=== PATIENT | female | born 1995 | race Two or more races ===

== ENCOUNTER 2017-10-10 23:21 | Emergency (ER) | payer MEDICAID, OTHER ==
[~2017-10-10] VITALS: Ht 160 cm; Wt 61.2 kg
[2017-10-10 23:37] VITALS: BP 124/79
[2017-10-11] MEDS ORDERED: LEVETIRACETAM 500 MG TAB PO ONE ×2 (00:15)
[2017-10-11 00:31] LABS: Basophils # (auto) 0.1 uL; Basophils % (auto) 1.6 % (0.0-2.0); Eosinophils # (auto) 0.1 uL; Eosinophils % (auto) 2.1 % (0.0-7.0); Hematocrit 43.4 % (36.0-46.0); Hemoglobin 14.8 g/dL (12.2-16.2); Lymphocytes # (auto) 1.2 uL; Lymphocytes % (auto) 30.1 % (10.0-50.0); Mean Corpuscular Volume 95.9 fL (80.0-100.0); Monocytes # (auto) 0.3 uL; Monocytes % (auto) 6.9 % (0.0-12.0); Neutrophils # (auto) 2.3 uL; Neutrophils % (auto) 59.3 % (37.0-80.0); Nucleated Red Blood Cells % 0.1 %; Red Blood Cells 4.53 10^6/uL (4.0-5.20)
[2017-10-11 00:32] LABS: Mean Corpuscular Hemoglobin 32.6 pg (28.0-32.0); Platelet Count (auto) 236 10^3/uL (140-450); Red Cell Distribution Width 13.3 % (11.8-14.3)
[2017-10-11 00:33] LABS: INR 0.89 (0.9-1.15); Partial Thromboplastin Time 23.5 sec (23.78-33.04); Prothrombin Time 9.6 sec (9.27-12.13)
[2017-10-11 00:36] LABS: Albumin 3.3 g/dL (3.4-5.0); Calcium 8.2 mg/dL (8.5-10.1); Potassium 4.5 mmol/L (3.5-5.1)
[2017-10-11 00:40] LABS: BUN/Creatinine Ratio 22.2; Bilirubin, Total 0.3 mg/dL (0.2-1.0); Total Protein 7.2 g/dL (6.4-8.2)
[2017-10-11] MEDS ORDERED: InsuLIN REG 1unit/0.01ml Soln (100units/ml) IV ONE (01:00)
[2017-10-11] MEDS ORDERED: SODIUM CHLORIDE 0.9% 2,000 ML IV ONE (01:00)
== END 2017-10-11 04:15 | disposition home or self-care (01) ==
LOC: EDBD 23:21 → ER 23:21
DX: S01.01XA Laceration without foreign body of scalp, initial encounter (principal); G40.909 Epilepsy, unspecified, not intractable, without status epilepticus; R53.1 Weakness; W18.39XA Other fall on same level, initial encounter; Y93.89 Activity, other specified; Y92.89 Other specified places as the place of occurrence of the external cause; Y99.8 Other external cause status; Z79.4 Long term (current) use of insulin
CPT/HCPCS: 12002; 36415; 70450; 80053; 82962; 84702; 85025; 85610; 85730; 96374; 99285; J1815

== ENCOUNTER 2018-01-20 20:13 | Emergency (ER) | payer MEDICAID ==
[~2018-01-20] VITALS: Ht 162.6 cm; Wt 63.5 kg
[2018-01-20] MEDS ORDERED: ACETAMINOPHEN 325 MG TAB PO ONE (20:30)
[2018-01-20 21:42] LABS: Basophils # (auto) 0 uL; Basophils % (auto) 0.4 % (0.0-2.0); Eosinophils # (auto) 0.1 uL; Eosinophils % (auto) 1.2 % (0.0-7.0); Hematocrit 42.3 % (36.0-46.0); Hemoglobin 14.1 g/dL (12.2-16.2); Lymphocytes # (auto) 0.7 uL; Lymphocytes % (auto) 9.9 % (10.0-50.0); Mean Corpuscular Hemoglobin 31.2 pg (28.0-32.0); Mean Corpuscular Hgb Conc. 33.2 g/dL (32.0-36.0); Mean Corpuscular Volume 93.8 fL (80.0-100.0); Monocytes # (auto) 0.3 uL; Monocytes % (auto) 4.1 % (0.0-12.0); Neutrophils # (auto) 6.1 uL; Neutrophils % (auto) 84.4 % (37.0-80.0); Platelet Count (auto) 258 10^3/uL (140-450); Red Blood Cells 4.51 10^6/uL (4.0-5.20); Red Cell Distribution Width 12.6 % (11.8-14.3); White Blood Cell 7.2 10^3/uL (4.4-10.8)
[2018-01-20] MEDS ORDERED: SODIUM CHLORIDE 0.9% 500 ML IV ONE (22:00)
[2018-01-20] MEDS ORDERED: InsuLIN REG 1unit/0.01ml Soln (100units/ml) IV ONE (22:00)
[2018-01-20 22:03] LABS: BUN/Creatinine Ratio 15.7; Calcium 7.6 mg/dL (8.5-10.1); Potassium 5.2 mmol/L (3.5-5.1)
[2018-01-20 22:05] LABS: Bilirubin, Total 0.2 mg/dL (0.2-1.0); Total Protein 6.7 g/dL (6.4-8.2)
[2018-01-20 23:35] LABS: Lactic Acid w/Reflex 2.6 mmol/L (0.4-2.0)
[2018-01-20 23:44] LABS: Urine Pregnacy Test Negative (Negative)
[2018-01-20 23:48] LABS: Urine Bacteria NONE SEEN /hpf (None Seen); Urine Blood 2+ /uL (Negative); Urine Specific Gravity 1.024 (1.001-1.035); Urine WBC 1 /hpf (0 - 5)
[2018-01-20 23:56] LABS: Alcohol, Urine < 3.0 mg/dL (0-5); Amphetamine Screen, Urine NEGATIVE (NEGATIVE); Barbiturate Scree,Urine NEGATIVE (NEGATIVE); Benzodiazephine Screen, Urine NEGATIVE (NEGATIVE); Cannabinoid Screen, Urine NEGATIVE (NEGATIVE); Cocaine Screen, Urine NEGATIVE (NEGATIVE); Opiate Scree,Urine NEGATIVE (NEGATIVE); Phencyclidine Screen, Urine NEGATIVE (NEGATIVE)
[2018-01-21 01:53] VITALS: BP 136/88
== END 2018-01-21 01:56 | disposition home or self-care (01) ==
LOC: ER 20:13
DX: R41.82 Altered mental status, unspecified (principal); R55 Syncope and collapse; E11.65 Type 2 diabetes mellitus with hyperglycemia; E11.10 Type 2 diabetes mellitus with ketoacidosis without coma; E87.5 Hyperkalemia
CPT/HCPCS: 36415; 70450; 72125; 80053; 80307; 81001; 81025; 82010; 82962; 83605; 85025; 87040; 96361; 96374; 99285; J1815; J7030

== ENCOUNTER 2023-11-15 11:13 | Emergency (ER) | payer MEDICAID ==
[~2023-11-15] VITALS: Ht 162.6 cm; Wt 72.7 kg
[2023-11-15] MEDS: levETIRAcetam 1000 mg/100ml 100 ML IV ONE (12:21)
[2023-11-15] MEDS: LORazepam 2MG/ML-1ML VIAL IV ONE (12:21)
[2023-11-15] MEDS: D5W/SOD CHLO 0.9% 1,000 ML IV ONE (12:21)
[2023-11-15 12:26] LABS: Basophils # (auto) 0.1 10 ^3/uL (0-0.2); Eosinophils # (auto) 0.3 10 ^3/uL (0-0.8); Hemoglobin 11.2 g/dL (12.2-16.2); Lymphocytes # (auto) 1.1 10 ^3/uL (0.4-5.4); Monocytes # (auto) 0.3 10 ^3/uL (0-1.3); Neutrophils # (auto) 3.7 10 ^3/uL (1.6-8.6); White Blood Cell 5.4 10^3/uL (4.4-10.8)
[2023-11-15 12:29] LABS: Basophils % (auto) 1.2 % (0.0-2.0); Eosinophils % (auto) 5.3 % (0.0-7.0); Lymphocytes % (auto) 19.7 % (10.0-50.0); Mean Corpuscular Hemoglobin 25.4 pg (28.0-32.0); Mean Corpuscular Volume 79.4 fL (80.0-100.0); Monocytes % (auto) 5.2 % (0.0-12.0); Neutrophils % (auto) 68.6 % (37.0-80.0); Red Blood Cells 4.41 10^6/uL (4.0-5.20); Red Cell Distribution Width 17.1 % (11.8-14.3)
[2023-11-15 12:34] LABS: Blood Alcohol < 3.0 mg/dL (<10)
[2023-11-15 12:37] LABS: Alanine Aminotransferase 22 U/L (7-40); Albumin 3.8 g/dL (3.2-4.8); Alkaline Phosphatase 113 U/L (46-116); Anion Gap 9 (5-15); Aspartate Aminotransferase 17 U/L (13-40); Bilirubin, Total 0.3 mg/dL (0.2-1.0); Blood Urea Nitrogen 13 mg/dL (9-23); Calcium 8.8 mg/dL (8.5-10.1); Carbon Dioxide 21 mmol/L (20-30); Chloride 107 mmol/L (98-107); Glucose 156 mg/dL (74-106); Potassium 3.4 mmol/L (3.5-5.1); Sodium 137 mmol/L (136-145)
[2023-11-15 19:48] VITALS: BP 150/108; PULSE 74; RESP 12; TEMP 98.2; O2SAT 99
== END 2023-11-15 19:47 | disposition home or self-care (01) ==
LOC: ER 11:13 → EDBD 11:13 → ER 19:47
DX: R56.9 Unspecified convulsions (principal); R10.2 Pelvic and perineal pain; E11.649 Type 2 diabetes mellitus with hypoglycemia without coma; T38.3X5A Adverse effect of insulin and oral hypoglycemic [antidiabetic] drugs, initial encounter; Y92.9 Unspecified place or not applicable
CPT/HCPCS: 36415; 80053; 80320; 83735; 84702; 85025; 93005; 96365; 99285; J1953

== ENCOUNTER 2025-04-05 21:40 | Inpatient (IN) | payer MEDICAID ==
[~2025-04-05] VITALS: Ht 160 cm; Wt 76.5 kg
[2025-04-05] MEDS: ONDANSETRON HCL 4 MG/2 ML VIAL IV ONE (23:32)
--- NOTE | 2025-04-05 23:37 | DVH ---
CHEST RADIOGRAPH Indication: seizure Technique: Single frontal view of the chest was obtained COMPARISON: None FINDINGS: Lines and Tubes: None Lungs: Clear Pleura: No effusion. No pneumothorax. Cardiomediastinal contours: Unremarkable Bones: Unremarkable IMPRESSION: 1. No acute disease.
[2025-04-05 23:49] LABS: Hematocrit 30.8 % (36.0-46.0); Hemoglobin 9.9 g/dL (12.2-16.2); Mean Corpuscular Hemoglobin 23.3 pg (28.0-32.0); Mean Corpuscular Volume 72.5 fL (80.0-100.0); Nucleated Red Blood Cells % 0.0 %
--- NOTE | 2025-04-05 23:49 | ED.PDOC ---
HPI (NEURO) HPI Comments HPI: 29-year-old female who came to ER via EMS for seizures. History of seizures and diabetes. Patient after dinner, took 8 units of insulin, and shortly afterwards, while she was at the couch had a witnessed seizure episode. No head trauma noted. Patient supposed takes Keppra 500 mg 2x/day, however she did not take this mornings dose. Last seizure episode was a year ago. Upon arrival of paramedics, noted blood sugar levels of 69 so patient was given D10w and it improved to 149. Upon arrival at the ER, patient is at baseline, not post ictal, no incontinence or oral trauma noted Past Medical History: Diabetes, seizures, asthma Past Surgical History: Eye surgery Social History: Medications: Keppra, insulin Allergies: quiroz:: sz HPI: Poor Historian. REVIEW OF SYSTEMS: CONSTITUTIONAL: Denies acute: fever, diaphoresis, chills, HEAD: Denies acute: , photophobia Eyes: Denies acute: Double vision, vision loss, eye pain, eye discharge. EARS: Denies acute: tinnitus, hearing loss, ear discharge, ear pain, THROAT: Denies acute: sore throat, swelling, difficulty swallowing , pain with swallowing, change in voice. NECK: Denies acute: neck pain, neck swelling, stiff neck. HEART: Denies acute : chest pain, palpitations, LUNGS: Denies acute: SOB, wheezing, cough, hemoptysis ABDOMEN: Denies acute: abdominal pain, , Vomiting, diarrhea, melena , hematemesis, hematochezia SKIN: Denies acute: rash, redness, lesions, itchiness. EXTREMITIES: Denies acute: calf pain, numbness, tingling, weakness, denies pain in extremity. Denies acute: Low back pain. Neuro: Denies acute: focal neurological deficit, motor or sensory focal neurological deficit, confusion, dizziness, change in mental status, loss of bowel or bladder function, cauda equina like symptoms. : Denies acute: dysuria, hematuria, flank pain, increase in urinary frequency. PSYCH: Denies acute: hallucination, suicidal ideation, homicidal ideation. FEMALE: Denies acute: abnormal vaginal bleeding, foul odor, unusual discharge. PHYSICAL EXAM: General: ----no----acute distress, awake and alert. Head: normocephalic, atraumatic. No raccoon's eyes, no madrid sign. Neck: supple, trachea is midline, no swelling. Throat: Normal phonation. Eyes:, no erythema, no purulent discharge, no proptosis, no icterus. Heart: regular rate, regular rhythm, no significant murmur appreciated. Lungs: no apparent respiratory distress, Able to speak in full sentences. No wheezing, no rhonchi, no crackles. No stridors Clear to auscultation bilaterally. Abdomen: non tender to palpation, non distended, soft, no guarding, no rebound, + bowel sounds. Neuro: Awake, Alert, oriented to name, self, situation, follows commands GCS=15. Speech is normal. Skin: no petechia, no purpura, no cyanosis, non-pale, not jaundice. Lower extremities: --no - Pitting edema no deformity, no focal swelling, no calf TTP. Makes eye contact. moves all four extremities. Face: no apparent facial droop. Ambulating in the ED independently. No nuchal rigidity, Kernig's sign, Brudzinski's sign, no meningeal signs. ED COURSE: DISCLAIMER: This medical document was created using an electronic medical record system with voice recognition software and computerized dictation system. Although this document has been carefully reviewed, there might still be some phonetic and typographical errors. Occasional wrong-word or "sound-alike" substitutions may h ave occurred due to the inherent limitations of voice recognition software. These areas are purely typographical due to imperfections of the software programs and do not reflect any compromise in the patient's medical care. Please read the chart carefully and recognize, using context, where these substitutions have occurred. Chief Complaint: Seizure Time Seen by MD: 23:49 Reviewed Notes: Nurses Notes, Allergies Information Source: Patient Mode of Arrival: EMS Past Medical History PAST MEDICAL HISTORY: DM, Seizures Surgical History: Denies all surgeries CLIPPING MARKER History: Denies all CLIPPING MARKER Hx Family History Family History: Unknown Social History Smoker: Non-Smoker Alcohol: Denies ETOH Use Drugs: Denies Drug Use Lives In: Home Was a procedure done? Was a procedure done?: No Differential Diagnosis (SZ) Seizure: Epilepsy-Break Through, Epilepsy-Status X-Ray, Labs, Meds, VS Vital Signs Date Time Temp Pulse Resp B/P (MAP) Pulse Ox O2 Delivery O2 Flow Rate FiO2 04/06/25 02:00 85 12 148/89 (108) 96 04/06/25 00:00 85 13 159/97 (117) 99 04/05/25 22:13 98.4 96 18 146/102 (117) 98 98.4 04/05/25 22:13 Room Air* 0 21 04/05/25 21:45 98.0 91 18 156/82 96 98.0 Lab Test 04/06/25 00:20 04/05/25 23:25 04/05/25 23:21 04/05/25 23:19 Range/Units POC Glucose 89 70-106 mg/dl Levetiracetam Level Pending White Blood Count 8.9 4.4-10.8 10^3/uL Red Blood Count 4.24 4.0-5.20 10^6/uL Hemoglobin 9.9 L 12.2-16.2 g/dL Hematocrit 30.8 L 36.0-46.0 % Mean Corpuscular Volume 72.5 L 80.0-100.0 fL Mean Corpuscular Hemoglobin 23.3 L 28.0-32.0 pg Mean Corpuscular Hemoglobin Concent 32.1 32.0-36.0 g/dL Red Cell Distribution Width 16.4 H 11.8-14.3 % Platelet Count 430 140-450 10^3/uL Mean Platelet Volume 7.9 6.9-10.8 fL Neutrophils (%) (Auto) 74.3 37.0-80.0 % Lymphocytes (%) (Auto) 14.4 10.0-50.0 % Monocytes (%) (Auto) 6.0 0.0-12.0 % Eosinophils (%) (Auto) 4.5 0.0-7.0 % Basophils (%) (Auto) 0.8 0.0-2.0 % Neutrophils # (Auto) 6.6 1.6-8.6 10 ^3/uL Lymphocytes # (Auto) 1.3 0.4-5.4 10 ^3/uL Monocytes # (Auto) 0.5 0-1.3 10 ^3/uL Eosinophils # (Auto) 0.4 0-0.8 10 ^3/uL Basophils # (Auto) 0.1 0-0.2 10 ^3/uL Nucleated Red Blood Cells 0.0 % Sodium Level 139 136-145 mmol/L Potassium Level 4.3 3.5-5.1 mmol/L Chloride Level 103 98-107 mmol/L Carbon Dioxide Level 28 20-31 mmol/L Anion Gap 8 5-15 Blood Urea Nitrogen 27 H 9-23 mg/dL Creatinine 1.67 H 0.550-1.02 mg/dL Glomerular Filtration Rate Calc 43 >90 mL/min BUN/Creatinine Ratio 16.2 10.0-20.0 Serum Glucose 49 *L 74-106 mg/dL Lactic Acid Level 1.6 0.4-2.0 mmol/L Calcium Level 8.6 L 8.7-10.4 mg/dL Magnesium Level 2.1 1.6-2.6 mg/dL Total Bilirubin 0.2 0.2-1.0 mg/dL Aspartate Amino Transferase (AST) 22 13-40 U/L Alanine Aminotransferase (ALT) 21 7-40 U/L Alkaline Phosphatase 88 46-116 U/L Troponin I High Sensitivity < 3 L </=34 ng/L Total Protein 7.0 5.7-8.2 g/dL Albumin 3.6 3.2-4.8 g/dL Urine Color Colorless Yellow Urine Clarity Turbid H Clear Urine pH 6.5 5.0-9.0 Urine Specific [place] 1.012 1.001-1.035 Urine Protein 2+ H Negative Urine Ketones Negative Negative Urine Blood 3+ H Negative /uL Urine Nitrite Negative Negative Urine Bilirubin Negative Negative Urine Urobilinogen Normal Negative mg/dL Urine Leukocyte Esterase 1+ Negative /uL Urine RBC 4035 0 - 4 /hpf Urine Microscopic WBC 17 H 0-5 /HPF Urine Squamous Epithelial Cells Few <5 /hpf Urine Bacteria None seen None Seen /hpf Urine Glucose 2+ H Normal mg/dL Test 04/05/25 22:51 04/05/25 21:49 Range/Units POC Glucose 76 149 H 70-106 mg/dl Current Medications Medications (Trade) Dose Ordered Sig/Chely Route Start Time Stop Time Status Last Admin Ondansetron HCl (Zofran) 4 mg ONCE ONCE IV 04/05/25 23:30 04/05/25 23:31 DC 04/05/25 23:32 Sodium Chloride 1,000 ml @ 1,000 mls/hr Q1H ONCE IV 04/05/25 23:45 04/06/25 00:44 DC 04/06/25 00:44 Levetiracetam 100 ml @ 400 mls/hr ONCE ONCE IV 04/05/25 23:45 04/05/25 23:59 DC 04/06/25 00:44 Acetaminophen (Tylenol Solution Oral) 650 mg ONCE ONCE GT 04/05/25 23:45 04/05/25 23:46 DC 04/06/25 00:44 Dextrose 50 ml ONCE ONCE IV 04/06/25 00:45 04/06/25 00:46 DC 04/06/25 00:45 [place] [id number] Ph: [phone] DIAGNOSTIC IMAGING Diagnostic Imaging Report : [id number] Signed PATIENT: KATRINA QUIROZ ACCT: [id number] UNIT: [id number] : 1995 LOC: ER ROOM / BED: / AGE / SEX: 29 / F ADM STATUS: REG ER SERVICE 07 ORDERING PHYSICIAN: EMILE GREER DO PROCEDURE(s): CXRP - CHEST PORTABLE REASON: seizure ORDER NUMBER(s): [id number], ACCESSION NUMBER(s): [id number] CHEST RADIOGRAPH Indication: seizure Technique: Single frontal view of the chest was obtained COMPARISON: None FINDINGS: Lines and Tubes: None Lungs: Clear Pleura: No effusion. No pneumothorax. Cardiomediastinal contours: Unremarkable Bones: Unremarkable IMPRESSION: 1. No acute disease. ATED BY: ALFONSO FRASER MD DICTATED DATE/TIME: 04/05/252334 SIGNED BY: ALFONSO FRASER MD SIGNED DATE/TIME: 04/05/252334 CC: Time of 1ST Reevaluation: 23:42 Reevaluation 1ST: Unchanged Patient Education/Counseling: Diagnosis, Treatment Family Education/Counseling: Diagnosis, Treatment Departure 1 Departure Time of Disposition: 00:22 Impression: Primary Impression: Breakthrough seizure Additional Impression: Hypoglycemia Disposition: ADMITTED INPATIENT Admit to: Tele Condition: Guarded Discharged With: Self Critical Care Note Critical Care Time?: No I personally scribed for EMILE GREER DO ([facility] on 04/05/25 at 23:49. Electronically submitted by Alec Mckeon ([facility] I personally scribed for EMILE GREER DO ([facility]) on 04/06/25 at 04:28. Electronically submitted by Alec Mckeon ([email or web address]). EMILE GREER DO Apr 05, 2025 23:49
[2025-04-06 00:04] LABS: Alanine Aminotransferase 21 U/L (7-40); Albumin 3.6 g/dL (3.2-4.8); Alkaline Phosphatase 88 U/L (46-116); Anion Gap 8 (5-15); BUN/Creatinine Ratio 16.2 (10.0-20.0); Carbon Dioxide 28 mmol/L (20-31); Chloride 103 mmol/L (98-107); Magnesium 2.1 mg/dL (1.6-2.6); Potassium 4.3 mmol/L (3.5-5.1); Sodium 139 mmol/L (136-145); Total Protein 7.0 g/dL (5.7-8.2)
[2025-04-06 00:05] LABS: Bilirubin, Total 0.2 mg/dL (0.2-1.0); Blood Urea Nitrogen 27 mg/dL (9-23); Calcium 8.6 mg/dL (8.7-10.4)
[2025-04-06 00:18] LABS: Glucose 49 mg/dL (74-106)
[2025-04-06] MEDS: ACETAMINOPHEN 650 mg PER 20.3 mL UD GT ONE (00:44)
[2025-04-06] MEDS: SODIUM CHLORIDE 0.9% 1,000 ML IV ONE (00:44)
[2025-04-06] MEDS: levETIRAcetam 1000 mg/100ml 100 ML IV ONE (00:44)
[2025-04-06] MEDS: DEXTROSE (50%) 50ML SYRG IV ONE (00:45)
[2025-04-06 02:30] LABS: Urine Protein, UAD 2+ (Negative)
--- NOTE | 2025-04-06 04:31 | DVHHPRES ---
History of Present Illness Resident Creating Document: JASMIN CAPPS History of Present Illness Patient is a 29-year-old female with past medical history of type 1 diabetes mellitus and seizures, presented to [facility] ED after seizure episode. Last night, she took Novolog right before dinner and later found her blood glucose was 57 mg/dL.and shortly afterward experienced a witnessed seizure while sitting on the couch, witnessed by her mother. There was no head trauma noted. Patient reports that she checking her blood glucose daily, with recent averages around 180 mg/dL. She also reportedly takes Keppra 500 mg twice daily but missed her morning dose today. Her last seizure occurred one year ago. Upon EMS arrival, her blood glucose was 69 mg/dL, and she was given D10W, which improved her glucose to 149 mg/dL. On evaluation in the ED, patient is afebrile, blood pressure is 156/82 mmHg. Initial labs show microcytic anemia, serum glucose 49, BUN 27 and creatinine 1.67. Chest x-ray shows no acute disease. The patient was started on IV antibiotics and IV fluids. Patient is admitted for further evaluation and management. Review of Systems Review of Systems Eyes: No Pain, No Vision change, No Conjunctivae inflammation, No Eyelid inflammation, No Other, No Redness ENT: No Ear pain, No Ear discharge, No Nose pain, No Nose discharge, No Nose congestion, No Mouth pain, No Mouth swelling, No Throat pain, No Throat swelling, No Other Cardiovascular: No Chest Pain, No Palpitations, No Orthopnea, No Paroxysmal No Dyspnea, No Edema, No Lt Headedness, No Other Respiratory: No Cough, No Dry, No Shortness of breath, No SOB with exertion, No Wheezing, No Hemoptysis, No Pleuritic Pain, No Sputum, No Other Gastrointestinal: No Nausea, No Vomiting, No Abdominal Pain, No Diarrhea, No Constipation, No Melena, No Hematochezia, No Other Genitourinary: No Dysuria, No Frequency, No Incontinence, No Hematuria, No Retention, No Other Musculoskeletal: No other, No neck pain, No shoulder pain, No arm pain, No back pain, No hand pain, No leg pain, No foot pain Neurological: Reports seizure last night. Denies focal weakness, numbness, dizziness, confusion, bowel/bladder incontinence. Skin: No Rash, No Lesions, No Jaundice, No Bruising, No Other Allergies: Coded Allergies: NO KNOWN ALLERGIES (Unverified , 10/10/17) Exam Vital Signs Vital Signs Date Time Temp Pulse Resp B/P (MAP) Pulse Ox O2 Delivery O2 Flow Rate FiO2 04/06/25 02:00 85 12 148/89 (108) 96 04/05/25 22:13 98.4 98.4 04/05/25 22:13 Room Air* 0 21 Exam General Appearance: Cooperative. Well developed. Well nourished. NAD Head Exam: Normal inspection Neck Exam: Normal inspection. Non-tender. Normal alignment Pulmonary/Respiratory: Chest non-tender. Clear bilateral breath sounds, no crackles, no wheezing. Cardiovascular/Chest: Regular rate and rhythm. No murmurs. No JVD. Peripheral Pulses: 2+ Radial (R). 2+ Radial (L). 2+ Pedal (R). 2+ Pedal (L) Abdominal Exam: Normal bowel sounds. Soft. normal abdomen, no visible veins, Nontender. No hepatospenomegaly. No masses Ankle Exam: Negative ankle edema Lower extremities: Negative lower extremity edema Neuro: Awake, alert, oriented 4, GCS 15, normal speech, moves all extremities, no facial droop, no focal deficits. Thoughts/Psych: Normal thought pattern. Appropriate mood and affect. Good judgement and insight Skin Exam: Normal inspection. Normal color. Warm. Dry Labs/Xrays Labs Test 04/06/25 00:20 04/05/25 23:25 04/05/25 23:21 04/05/25 23:19 Range/Units POC Glucose 89 70-106 mg/dl White Blood Count 8.9 4.4-10.8 10^3/uL Red Blood Count 4.24 4.0-5.20 10^6/uL Hemoglobin 9.9 L 12.2-16.2 g/dL Hematocrit 30.8 L 36.0-46.0 % Mean Corpuscular Volume 72.5 L 80.0-100.0 fL Mean Corpuscular Hemoglobin 23.3 L 28.0-32.0 pg Mean Corpuscular Hemoglobin Concent 32.1 32.0-36.0 g/dL Red Cell Distribution Width 16.4 H 11.8-14.3 % Platelet Count 430 140-450 10^3/uL Mean Platelet Volume 7.9 6.9-10.8 fL Neutrophils (%) (Auto) 74.3 37.0-80.0 % Lymphocytes (%) (Auto) 14.4 10.0-50.0 % Monocytes (%) (Auto) 6.0 0.0-12.0 % Eosinophils (%) (Auto) 4.5 0.0-7.0 % Basophils (%) (Auto) 0.8 0.0-2.0 % Neutrophils # (Auto) 6.6 1.6-8.6 10 ^3/uL Lymphocytes # (Auto) 1.3 0.4-5.4 10 ^3/uL Monocytes # (Auto) 0.5 0-1.3 10 ^3/uL Eosinophils # (Auto) 0.4 0-0.8 10 ^3/uL Basophils # (Auto) 0.1 0-0.2 10 ^3/uL Nucleated Red Blood Cells 0.0 % Sodium Level 139 136-145 mmol/L Potassium Level 4.3 3.5-5.1 mmol/L Chloride Level 103 98-107 mmol/L Carbon Dioxide Level 28 20-31 mmol/L Anion Gap 8 5-15 Blood Urea Nitrogen 27 H 9-23 mg/dL Creatinine 1.67 H 0.550-1.02 mg/dL Glomerular Filtration Rate Calc 43 >90 mL/min BUN/Creatinine Ratio 16.2 10.0-20.0 Serum Glucose 49 *L 74-106 mg/dL Lactic Acid Level 1.6 0.4-2.0 mmol/L Calcium Level 8.6 L 8.7-10.4 mg/dL Magnesium Level 2.1 1.6-2.6 mg/dL Total Bilirubin 0.2 0.2-1.0 mg/dL Aspartate Amino Transferase (AST) 22 13-40 U/L Alanine Aminotransferase (ALT) 21 7-40 U/L Alkaline Phosphatase 88 46-116 U/L Troponin I High Sensitivity < 3 L </=34 ng/L Total Protein 7.0 5.7-8.2 g/dL Albumin 3.6 3.2-4.8 g/dL Urine Color Colorless Yellow Urine Clarity Turbid H Clear Urine pH 6.5 5.0-9.0 Urine Specific [place] 1.012 1.001-1.035 Urine Protein 2+ H Negative Urine Ketones Negative Negative Urine Blood 3+ H Negative /uL Urine Nitrite Negative Negative Urine Bilirubin Negative Negative Urine Urobilinogen Normal Negative mg/dL Urine Leukocyte Esterase 1+ Negative /uL Urine RBC 4035 0 - 4 /hpf Urine Microscopic WBC 17 H 0-5 /HPF Urine Squamous Epithelial Cells Few <5 /hpf Urine Bacteria None seen None Seen /hpf Urine Glucose 2+ H Normal mg/dL SEPSIS Sepsis Screen Date sepsis recognized/suspect: Apr 05, 2025 Time Sepsis recognized/suspect: 2212 Recent Procedure: No On Antibiotic Therapy: No Respiratory Rate >20: No Heart Rate >90: No Temp<36 C (96.8 F) or >38.3 C: No SBP <90 or MAP <65 mmHG: No New Acute Mental Status Change: No Is the patient on CPAP, BIPAP,: No Physician Orders Seizure Precautions (04/05/25 ) Flatwork Finisher Hand (04/05/25 ) Chest Portable (04/05/25 23:08) Electrocardigram (04/05/25 23:08) Levetiracetam (Keppra) (04/05/25 23:41) Vital Signs Date Time Temp Pulse Resp B/P (MAP) Pulse Ox O2 Delivery O2 Flow Rate FiO2 04/06/25 02:00 85 12 148/89 (108) 96 04/06/25 00:00 85 13 159/97 (117) 99 04/05/25 22:13 98.4 96 18 146/102 (117) 98 98.4 04/05/25 22:13 Room Air* 0 21 04/05/25 21:45 98.0 91 18 156/82 96 98.0 Laboratory Tests Test 04/05/25 23:21 Lactic Acid Level 1.6 mmol/L (0.4-2.0) White Blood Count 8.9 10^3/uL (4.4-10.8) Medications Medications Dose Ordered Sig/Chely Route Start Time Stop Time Status Last Admin Dose Admin Acetaminophen 650 mg ONCE ONCE GT 04/05/25 23:45 04/05/25 23:46 DC 04/06/25 00:44 650 MG Dextrose 50 ml ONCE ONCE IV 04/06/25 00:45 04/06/25 00:46 DC 04/06/25 00:45 50 ML Levetiracetam 100 ml @ 400 mls/hr ONCE ONCE IV 04/05/25 23:45 04/05/25 23:59 DC 04/06/25 00:44 400 MLS/HR Ondansetron HCl 4 mg ONCE ONCE IV 04/05/25 23:30 04/05/25 23:31 DC 04/05/25 23:32 4 MG Sodium Chloride 1,000 ml @ 1,000 mls/hr Q1H ONCE IV 04/05/25 23:45 04/06/25 00:44 DC 04/06/25 00:44 1,000 MLS/HR Assessment/Plan Assessment/Plan Breakthrough seizure likely due to hypoglycemia Generalized tonic-clonic seizure Type 1 diabetes mellitus with hypoglycemia Dextrose 50% 50 ML IV once Keppra IV once IV NS 1,000 MLS/HR one Lorazepam 0.5 mg p.o. q12h Zofran 4 MG IV q4h pain management with Tylenol EKG RUBINA due to VMN Monitor renal function Avoid nephrotoxic drugs Urinary tract infection ceftriaxone IV daily Diet: Cardiac Goals of care: Full code, discussed for >30 minutes on 04/06/25 Plan discussed with patient Plan discussed with Dr. Vanegas Plan discussed with: Patient Date of Service: Apr 06, 2025 Billing Provider: DESIREE VANEGAS MD Common Visit Codes: [id number] INP/OBS CARE (HIGH) Secondary Visit Codes: [id number] CARE PLAN 30 MINUTES JASMIN CAPPS RESIDENT Apr 06, 2025 04:31 DEBBIE FARMER RESIDENT Apr 06, 2025 06:43
[2025-04-06] MEDS ORDERED: LORazepam 0.5 MG TAB PO PRN (04:45)
[2025-04-06] MEDS ORDERED: ONDANSETRON HCL 4 MG/2 ML VIAL IV PRN (04:45)
[2025-04-06 05:23] LABS: Hemoglobin 9.3 g/dL (12.2-16.2); Nucleated Red Blood Cells % 0.0 %
[2025-04-06 05:27] LABS: Hematocrit 28.2 % (36.0-46.0); Mean Corpuscular Hemoglobin 23.8 pg (28.0-32.0); Mean Corpuscular Volume 72.2 fL (80.0-100.0)
[2025-04-06 05:45] LABS: Alanine Aminotransferase 19 U/L (7-40); Albumin 3.2 g/dL (3.2-4.8); Alkaline Phosphatase 84 U/L (46-116); Anion Gap 8 (5-15); BUN/Creatinine Ratio 16.7 (10.0-20.0); Bilirubin, Total 0.2 mg/dL (0.2-1.0); Blood Urea Nitrogen 28 mg/dL (9-23); Calcium 8.2 mg/dL (8.7-10.4); Carbon Dioxide 28 mmol/L (20-31); Chloride 103 mmol/L (98-107); Glucose 179 mg/dL (74-106); Potassium 4.2 mmol/L (3.5-5.1); Sodium 139 mmol/L (136-145); Total Protein 6.0 g/dL (5.7-8.2)
[2025-04-06] MEDS: SODIUM CHLOR 0.9% PF (SALINE LOCK) 10ML VIAL/SYR IV SCH (06:09)
[2025-04-06] MEDS ORDERED: DEXTROSE (50%) 50ML SYRG IV PRN (06:45)
[2025-04-06] MEDS: InsuLIN REG 1unit/0.01ml Soln (100units/ml) SC SCH (07:00)
[2025-04-06] MEDS: ACCU-CHEK COMFORT CURVE STRIP VI SCH (07:13)
[2025-04-06 07:40] VITALS: PULSE 89; RESP 16; O2SAT 98
[2025-04-06 14:09] VITALS: BP 156/98; PULSE 83; RESP 16; RESP 18; O2SAT 99
--- NOTE | 2025-04-06 14:39 | DVHPN2 ---
Objective Vitals Vital Signs Date Time Temp Pulse Resp B/P (MAP) Pulse Ox O2 Delivery O2 Flow Rate FiO2 04/06/25 04:00 86 14 150/78 (102) 96 04/05/25 22:13 98.4 98.4 04/05/25 22:13 Room Air* 0 21 Intake/Output Intake and Output 04/06/25 07:00 Intake Total 1200 ml Balance 1200 ml Intake IV Total 1200 ml Medications Current Medications Medications Dose Ordered Sig/Chely Route Start Time Stop Time Status Last Admin Dose Admin Sodium Chloride 10 ml Q8HR IV 04/06/25 06:00 04/06/25 06:09 10 ML Ondansetron HCl 4 mg Q4HP PRN IV 04/06/25 04:45 Lorazepam 0.5 mg Q12HP PRN PO 04/06/25 04:45 Ceftriaxone Sodium 50 ml @ 100 mls/hr DAILY@09 IV 04/07/25 09:00 Diagnostic Test (Pha) 1 strip ACHS 04/06/25 07:00 04/06/25 12:39 1 STRIP Insulin Human Regular ACHS SC 04/06/25 07:00 04/06/25 12:53 8 UNITS Dextrose 50 ml UD PRN IV 04/06/25 06:45 Laboratory Results Laboratory Tests 04/06/25 04:59 Chemistry Test 04/05/25 23:21 04/06/25 04:59 Albumin 3.6 g/dL (3.2-4.8) 3.2 g/dL (3.2-4.8) Calcium Level 8.6 mg/dL (8.7-10.4) L 8.2 mg/dL (8.7-10.4) L Magnesium Level 2.1 mg/dL (1.6-2.6) Total Protein 7.0 g/dL (5.7-8.2) 6.0 g/dL (5.7-8.2) LFT Test 04/05/25 23:21 04/06/25 04:59 Alanine Aminotransferase (ALT) 21 U/L (7-40) 19 U/L (7-40) Alkaline Phosphatase 88 U/L (46-116) 84 U/L (46-116) Aspartate Amino Transferase (AST) 22 U/L (13-40) 19 U/L (13-40) Total Bilirubin 0.2 mg/dL (0.2-1.0) 0.2 mg/dL (0.2-1.0) HgA1c, TSH Test 04/06/25 04:59 Hemoglobin A1c 9.1 % A1C (<5.7) H Urinalysis Test 04/05/25 23:19 Urine Color Colorless (Yellow) Urine Clarity Turbid (Clear) H Urine pH 6.5 (5.0-9.0) Urine Specific [place] 1.012 (1.001-1.035) Urine Protein 2+ (Negative) H Urine Ketones Negative (Negative) Urine Blood 3+ /uL (Negative) H Urine Nitrite Negative (Negative) Urine Bilirubin Negative (Negative) Urine Urobilinogen Normal mg/dL (Negative) Urine Leukocyte Esterase 1+ /uL (Negative) Urine RBC 4035 /hpf (0 - 4) Urine Microscopic WBC 17 /HPF (0-5) H Urine Squamous Epithelial Cells Few /hpf (<5) Urine Bacteria None seen /hpf (None Seen) Urine Glucose 2+ mg/dL (Normal) H ZENAIDA MOON MD Apr 06, 2025 14:39
[2025-04-06] MEDS ORDERED: LEVE500T40 PO (14:51)
[2025-04-06] MEDS ORDERED: INSU100I28 IJ (14:52)
[2025-04-06] MEDS ORDERED: INSLANTI SC (14:52)
[2025-04-06] MEDS ORDERED: ALBU2TAB11 PO (14:53)
[2025-04-06] MEDS ORDERED: LORazepam 2MG/ML-1ML VIAL IV PRN (16:00)
[2025-04-06 17:00] VITALS: BP 135/87; PULSE 83; RESP 16; TEMP 98.2; O2SAT 98
[2025-04-06] MEDS: SODIUM CHLORIDE 0.9% 1,000 ML IV SCH (17:09)
[2025-04-06 18:58] LABS: Protein, Urine 352.8 mg/dL (1-14)
--- NOTE | 2025-04-06 19:21 | BSKYNEURO ---
[place] Neuro Note # Demographics Consult Type: General Neurology Patient Location: Inpatient First Name: Dorota Last Name: Qasim Date of : 1995 Age: 29 Gender: Female Facility: [facility] Time of Initial Page (): 04/06/2025 16:56 First Contact with Site (): 04/06/2025 16:57 # HPI History: 29yo with history of seizures(on Keppra 500mg BID), had a breakthrough seizure. Now back to baseline. Her last seizure was about a year ago # Exam Time of Exam (): 04/06/2025 18:09 Mental Status: - awake - alert and oriented x 3 - follows commands Language: - normal speech - no aphasia - no dysarthria Cranial Nerves: - normal - extra ocular movements intact - PERRLA Motor: - normal strength # PMH-FH-SH Past Medical History: - Diabetes Social History: - non-smoker - non-drinker Medications: - diabetic medication Keppra 500mg BID Allergies: - NKDA # Assessment Impression: - Seizure # Plan Medication: increase Keppra to 750mg BID Other: - If patient has any neurological deterioration please call me back immediately Additional Recommendations: Follow up with neurology as outpatient, no driving until then # Demographics First Name: Dorota Last Name: Qasim Facility: [facility] Yes YOLA ROGER Jr., MD Apr 06, 2025 19:21
[2025-04-06 20:00] VITALS: PULSE 89; RESP 17
[2025-04-06 21:00] VITALS: BP 131/83; PULSE 87; RESP 20; TEMP 98.7; O2SAT 96
[2025-04-06] MEDS: CLOTRIMAZOLE 1 % CREAM 15GM TOP SCH (21:25)
[2025-04-07] VITALS (8 sets, daily range): BP systolic 129–152; BP diastolic 73–94; PULSE 71–84; RESP 17–21; TEMP 97.8–98.2; O2SAT 95–100
[2025-04-07 11:11] LABS: COVID19 ANTIGEN SOFIA FIA NEGATIVE (NEGATIVE)
--- NOTE | 2025-04-07 14:38 | DVHINCON2 ---
Date of service: Apr 07, [address] Ambrocio Reason for Consultation RUBINA History of Present Illness 29-year-old patient with significant history of diabetes type 1 insulin- dependent since age [age] with poor follow up, last time she saw a primary care physician was more than a year ago according to patient and the mother who is at bedside, she denies history of chronic kidney disease but remembers being told years ago to have proteinuria already. . She also has significant history of seizure disorder. Patient was at dinner yesterday injected insulin and after that he she had a witnessed seizure tonic-clonic episode despite being on her Keppra 500 mg twice a day. According to the mother has been years since she had the seizure. Blood glucose was low at 57 mg/dL prior to the seizure there is no head trauma reported, by EMS arrival glucose was 69 she was given dextrose improvement to 149 mg/dL but was found to have elevated creatinine to 1.67 mg/dL. He denies fever chills although endorses one episode of or two of vomiting. She denies any urinary symptoms. Past Medical History Diabetes type 1, seizure disorder Past Surgical History Denied Allergies: Uncoded Allergies: eggs, avocados, sea food. (Allergy, Unknown, 04/07/25) Home Meds Reported Medications Albuterol Sulfate (Albuterol Sulfate) 2 Mg Tab, 2 MG PO Q6HP PRN for SHORTNESS OF BREATH, MG 04/06/25 Insulin Glargine (Lantus) 100 Unit/Ml Inj, 30 UNIT SC HS, INJ 04/06/25 Insulin Aspart (Novolog) 100 Unit/Ml Inj, 100 UNIT IJ, INJ 04/06/25 Levetiracetam (Keppra) 500 Mg Tab, 500 MG PO BID for 30 Days, MG 04/06/25 Current Medications Current Medications Medications (Trade) Dose Ordered Sig/Chely Route PRN Reason Start Time Stop Time Status Last Admin Ceftriaxone Sodium 50 ml @ 100 mls/hr DAILY@09 IV 04/07/25 09:00 04/07/25 09:21 Sodium Chloride 1,000 ml @ 75 mls/hr [id number] IV 04/06/25 16:00 04/07/25 05:37 Clotrimazole (Lotrimin 1% Cream) 1 applic Q12HR TOP 04/06/25 22:00 04/07/25 09:21 Lorazepam (Ativan Inj) 1 mg Q5MINP PRN IV SEIZURES 04/06/25 16:00 Levetiracetam (Keppra Tablet) 750 mg BID PO 04/07/25 22:00 Family History: Asthma G8 MOTHER Diabetes mellitus G8 FATHER Hypertension G8 MOTHER Social History She denies smoking alcohol or drug abuse Review of Systems HEENT: Oral mucosa dry Neck no JVD Seizure Cardiovascular: Denies for chest pain denies orthopnea or PND Respiratory: Denies cough or shortness of breath Gastrointestinal: Denies for nausea vomiting Musculoskeletal: Denies myalgias Neurological: Denies focal weakness Dermatological: Denies any rash The rest of the review of systems were reviewed pertinent positives and pertinent negatives are as per HPI up to 12 points review of systems H&P Exam Vital Signs/I&O Vital Sign Date Time Temp Pulse Resp B/P (MAP) Pulse Ox O2 Delivery O2 Flow Rate FiO2 04/07/25 13:00 97.9 83 20 140/92 (108) 100 97.9 04/07/25 07:57 Room Air* 0 21 Intake and Output 04/06/25 04/07/25 19:00 07:00 Intake Total 630 ml 1500 ml Balance 630 ml 1500 ml Intake Oral 630 ml 600 ml IV Total 900 ml # Voids 1 2 Physical Exam HEENT: Dry oral mucosa Pulmonary: Lungs are clear on auscultation bilaterally Cardiovascular S1-S2, no S3 or S4 Abdomen: Bowel sounds positive, soft no rebound tenderness Skin: No rash Neurological: Alert, oriented, no focal weakness Labs/Diagnostic Data Labs/Diagnostic Data Laboratory Tests Test 04/07/25 11:03 04/07/25 05:52 04/06/25 22:45 04/06/25 21:19 Range/Units POC Glucose 191 H 70 281 H 70-106 mg/dl SARS-CoV-2 Antigen (Rapid) Negative NEGATIVE Test 04/06/25 17:07 04/06/25 15:11 04/06/25 13:47 04/06/25 12:35 Range/Units POC Glucose 125 H 301 H 340 H 70-106 mg/dl Creatine Kinase 173 H 34-145 U/L Test 04/06/25 09:02 04/06/25 06:58 04/06/25 04:59 04/06/25 04:32 Range/Units POC Glucose 57 L 114 H 177 H 70-106 mg/dl White Blood Count 9.0 4.4-10.8 10^3/uL Red Blood Count 3.90 L 4.0-5.20 10^6/uL Hemoglobin 9.3 L 12.2-16.2 g/dL Hematocrit 28.2 L 36.0-46.0 % Mean Corpuscular Volume 72.2 L 80.0-100.0 fL Mean Corpuscular Hemoglobin 23.8 L 28.0-32.0 pg Mean Corpuscular Hemoglobin Concent 33.0 32.0-36.0 g/dL Red Cell Distribution Width 16.5 H 11.8-14.3 % Platelet Count 411 140-450 10^3/uL Mean Platelet Volume 7.8 6.9-10.8 fL Neutrophils (%) (Auto) 81.6 H 37.0-80.0 % Lymphocytes (%) (Auto) 12.7 10.0-50.0 % Monocytes (%) (Auto) 4.4 0.0-12.0 % Eosinophils (%) (Auto) 0.6 0.0-7.0 % Basophils (%) (Auto) 0.7 0.0-2.0 % Neutrophils # (Auto) 7.4 1.6-8.6 10 ^3/uL Lymphocytes # (Auto) 1.1 0.4-5.4 10 ^3/uL Monocytes # (Auto) 0.4 0-1.3 10 ^3/uL Eosinophils # (Auto) 0.1 0-0.8 10 ^3/uL Basophils # (Auto) 0.1 0-0.2 10 ^3/uL Nucleated Red Blood Cells 0.0 % Sodium Level 139 136-145 mmol/L Potassium Level 4.2 3.5-5.1 mmol/L Chloride Level 103 98-107 mmol/L Carbon Dioxide Level 28 20-31 mmol/L Anion Gap 8 5-15 Blood Urea Nitrogen 28 H 9-23 mg/dL Creatinine 1.68 H 0.550-1.02 mg/dL Glomerular Filtration Rate Calc 42 >90 mL/min BUN/Creatinine Ratio 16.7 10.0-20.0 Serum Glucose 179 H 74-106 mg/dL Hemoglobin A1c 9.1 H <5.7 % A1C Calcium Level 8.2 L 8.7-10.4 mg/dL Total Bilirubin 0.2 0.2-1.0 mg/dL Aspartate Amino Transferase (AST) 19 13-40 U/L Alanine Aminotransferase (ALT) 19 7-40 U/L Alkaline Phosphatase 84 46-116 U/L Total Protein 6.0 5.7-8.2 g/dL Albumin 3.2 3.2-4.8 g/dL Beta HCG, Quantitative 0.9 L 1.5-4.2 mIU/mL Test 04/06/25 00:20 04/05/25 23:21 04/05/25 23:19 04/05/25 22:51 Range/Units POC Glucose 89 76 70-106 mg/dl White Blood Count 8.9 4.4-10.8 10^3/uL Red Blood Count 4.24 4.0-5.20 10^6/uL Hemoglobin 9.9 L 12.2-16.2 g/dL Hematocrit 30.8 L 36.0-46.0 % Mean Corpuscular Volume 72.5 L 80.0-100.0 fL Mean Corpuscular Hemoglobin 23.3 L 28.0-32.0 pg Mean Corpuscular Hemoglobin Concent 32.1 32.0-36.0 g/dL Red Cell Distribution Width 16.4 H 11.8-14.3 % Platelet Count 430 140-450 10^3/uL Mean Platelet Volume 7.9 6.9-10.8 fL Neutrophils (%) (Auto) 74.3 37.0-80.0 % Lymphocytes (%) (Auto) 14.4 10.0-50.0 % Monocytes (%) (Auto) 6.0 0.0-12.0 % Eosinophils (%) (Auto) 4.5 0.0-7.0 % Basophils (%) (Auto) 0.8 0.0-2.0 % Neutrophils # (Auto) 6.6 1.6-8.6 10 ^3/uL Lymphocytes # (Auto) 1.3 0.4-5.4 10 ^3/uL Monocytes # (Auto) 0.5 0-1.3 10 ^3/uL Eosinophils # (Auto) 0.4 0-0.8 10 ^3/uL Basophils # (Auto) 0.1 0-0.2 10 ^3/uL Nucleated Red Blood Cells 0.0 % Sodium Level 139 136-145 mmol/L Potassium Level 4.3 3.5-5.1 mmol/L Chloride Level 103 98-107 mmol/L Carbon Dioxide Level 28 20-31 mmol/L Anion Gap 8 5-15 Blood Urea Nitrogen 27 H 9-23 mg/dL Creatinine 1.67 H 0.550-1.02 mg/dL Glomerular Filtration Rate Calc 43 >90 mL/min BUN/Creatinine Ratio 16.2 10.0-20.0 Serum Glucose 49 *L 74-106 mg/dL Lactic Acid Level 1.6 0.4-2.0 mmol/L Calcium Level 8.6 L 8.7-10.4 mg/dL Magnesium Level 2.1 1.6-2.6 mg/dL Total Bilirubin 0.2 0.2-1.0 mg/dL Aspartate Amino Transferase (AST) 22 13-40 U/L Alanine Aminotransferase (ALT) 21 7-40 U/L Alkaline Phosphatase 88 46-116 U/L Troponin I High Sensitivity < 3 L </=34 ng/L Total Protein 7.0 5.7-8.2 g/dL Albumin 3.6 3.2-4.8 g/dL Urine Color Colorless Yellow Urine Clarity Turbid H Clear Urine pH 6.5 5.0-9.0 Urine Specific [place] 1.012 1.001-1.035 Urine Protein 2+ H Negative Urine Ketones Negative Negative Urine Blood 3+ H Negative /uL Urine Nitrite Negative Negative Urine Bilirubin Negative Negative Urine Urobilinogen Normal Negative mg/dL Urine Leukocyte Esterase 1+ Negative /uL Urine RBC 4035 0 - 4 /hpf Urine Microscopic WBC 17 H 0-5 /HPF Urine Squamous Epithelial Cells Few <5 /hpf Urine Bacteria None seen None Seen /hpf Urine Creatinine 46.38 30.0-125.0 mg/dL Urine Protein/Creatinine Ratio 7.61 Urine Sodium 82 40-220 mmol/L Urine Glucose 2+ H Normal mg/dL Urine Total Protein 352.8 H 1-14 mg/dL Test 04/05/25 21:49 Range/Units POC Glucose 149 H 70-106 mg/dl Chest x-ray no pulmonary process Assessment Assessment: 1. Acute kidney injury versus baseline Chronic kidney disease. 2. 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 3. Microscopic hematuria 4. Breakthrough seizure 5. Diabetes type 1 complicated by both hypoglycemia and hyperglycemia Plan: Continue NS drip, increase to 100 mL/hour Obtain renal ultrasound Repeat labs in a.m. Rocephin, follow urine culture Might benefit from kidney biopsy if UTI is ruled out Keppra has been increased to 750 mg b.i.d. Patient was advised to avoid NSAIDs and to make sure to follow up with primary care physician every three months and to follow up with Nephrology after discharge. Patient will benefit from TAMRA inhibitor/ARB upon discharge. Would not initiate the patient on SGLT2 inhibitor in view of her type 1 diabetes Plan of care was discussed with the patient and mother in detail. Plan discussed with: Patient, Other ABEL NIELSEN MD Apr 07, 2025 14:38
[2025-04-07 14:42] LABS: Hemoglobin 9.3 g/dL (12.2-16.2); Mean Corpuscular Volume 73.4 fL (80.0-100.0); Nucleated Red Blood Cells % 0.1 %
[2025-04-07 14:44] LABS: Hematocrit 29.2 % (36.0-46.0); Mean Corpuscular Hemoglobin 23.3 pg (28.0-32.0)
[2025-04-07] MEDS ORDERED: DEXTROSE (50%) 50ML SYRG IV PRN (14:45)
[2025-04-07 14:59] LABS: Alanine Aminotransferase 20 U/L (7-40); Albumin 3.2 g/dL (3.2-4.8); Alkaline Phosphatase 85 U/L (46-116); Anion Gap 7 (5-15); BUN/Creatinine Ratio 11.2 (10.0-20.0); Blood Urea Nitrogen 19 mg/dL (9-23); Carbon Dioxide 27 mmol/L (20-31); Chloride 103 mmol/L (98-107); Potassium 4.7 mmol/L (3.5-5.1); Sodium 137 mmol/L (136-145); Total Protein 6.3 g/dL (5.7-8.2)
[2025-04-07 15:00] LABS: Bilirubin, Total 0.2 mg/dL (0.2-1.0); Calcium 7.8 mg/dL (8.7-10.4); Glucose 292 mg/dL (74-106)
--- NOTE | 2025-04-07 15:15 | DVHPN2 ---
Subjective The patient seen and examined at bedside. Mom at bedside. Has lots of questions. Reviewed: Care Plan, H&P, Labs, Medications, Previous Orders, Radiology Changes from previous H/P or p: No Changes Objective Vitals Vital Signs Date Time Temp Pulse Resp B/P (MAP) Pulse Ox O2 Delivery O2 Flow Rate FiO2 04/07/25 13:00 97.9 83 20 140/92 (108) 100 97.9 04/07/25 07:57 Room Air* 0 21 Intake/Output Intake and Output 04/07/25 07:00 Intake Total 2130 ml Balance 2130 ml Intake Oral 1230 ml IV Total 900 ml # Voids 3 General Appearance: Alert, Oriented X3, Cooperative, No acute distress HEENT: Atraumatic, PERRLA, EOMI, Mucous membr. moist/pink Neck: Supple Lungs: Clear to auscultation, Normal air movement Cardiovascular: Regular rate, Normal S1, Normal S2, No murmurs, Gallops, Rubs Abdomen: Normal bowel sounds, Soft, No tenderness Neuro: Cranial nerves 3-12 NL Psych/Mental Status: Mental status NL Medications Current Medications Medications Dose Ordered Sig/Chely Route Start Time Stop Time Status Last Admin Dose Admin Sodium Chloride 10 ml Q8HR IV 04/06/25 06:00 04/07/25 13:40 10 ML Ondansetron HCl 4 mg Q4HP PRN IV 04/06/25 04:45 Lorazepam 0.5 mg Q12HP PRN PO 04/06/25 04:45 Ceftriaxone Sodium 50 ml @ 100 mls/hr DAILY@09 IV 04/07/25 09:00 04/07/25 09:21 100 MLS/HR Clotrimazole 1 applic Q12HR TOP 04/06/25 22:00 04/07/25 09:21 1 APPLIC Lorazepam 1 mg Q5MINP PRN IV 04/06/25 16:00 Levetiracetam 750 mg BID PO 04/07/25 22:00 Sodium Chloride 1,000 ml @ 100 mls/hr Q10H IV 04/07/25 14:45 Diagnostic Test (Pha) 1 strip ACHS 04/07/25 17:00 Insulin Human Regular ACHS SC 04/07/25 17:00 Dextrose 50 ml UD PRN IV 04/07/25 14:45 Acetaminophen 650 mg Q6HP PRN PO 04/07/25 14:45 Laboratory Results Laboratory Tests 04/07/25 14:26 Chemistry Test 04/07/25 14:26 Albumin 3.2 g/dL (3.2-4.8) Calcium Level 7.8 mg/dL (8.7-10.4) L Total Protein 6.3 g/dL (5.7-8.2) LFT Test 04/07/25 14:26 Alanine Aminotransferase (ALT) 20 U/L (7-40) Alkaline Phosphatase 85 U/L (46-116) Aspartate Amino Transferase (AST) 22 U/L (13-40) Total Bilirubin 0.2 mg/dL (0.2-1.0) Urinalysis Test 04/05/25 23:19 Urine Color Colorless (Yellow) Urine Clarity Turbid (Clear) H Urine pH 6.5 (5.0-9.0) Urine Specific [place] 1.012 (1.001-1.035) Urine Protein 2+ (Negative) H Urine Ketones Negative (Negative) Urine Blood 3+ /uL (Negative) H Urine Nitrite Negative (Negative) Urine Bilirubin Negative (Negative) Urine Urobilinogen Normal mg/dL (Negative) Urine Leukocyte Esterase 1+ /uL (Negative) Urine RBC 4035 /hpf (0 - 4) Urine Microscopic WBC 17 /HPF (0-5) H Urine Squamous Epithelial Cells Few /hpf (<5) Urine Bacteria None seen /hpf (None Seen) Urine Creatinine 46.38 mg/dL (30.0-125.0) Urine Protein/Creatinine Ratio 7.61 Urine Sodium 82 mmol/L (40-220) Urine Glucose 2+ mg/dL (Normal) H Urine Total Protein 352.8 mg/dL (1-14) H Labs and/or images reviewed: Labs reviewed by me Assessment/Plan Assessment/Plan Breakthrough seizure likely due to hypoglycemia Generalized tonic-clonic seizure Keppra 750mg PO bid, no more seizure for now. Teleneurologist input appreciate. Type 1 diabetes mellitus with hypoglycemia Dextrose 50% 1amp PRN for BG<60 SSI,mild Lantus restart today since her BG above 200. RUBINA due to VMN IV NS Monitor renal function Avoid nephrotoxic drugs Solar Installation Helper input, appreciate. Urinary tract infection ceftriaxone IV daily DW mom and patient at bedside in length Plan discussed with: Patient My Orders Orders - ZENAIDA MOON MD Procedure Category Date Status Time Clotrimazole 1% PHA 04/06/25 In Process Topical Cream 22:00 *[facility] CONS 04/06/25 Transmitted [place] 15:49 Lorazepam 2mg/Ml Inj PHA 04/06/25 In Process (Ativan Inj) 16:00 [facility] Consult CONS 04/06/25 Transmitted 16:18 Glucose Blood PHA 04/07/25 In Process (Accu-Chek [facility] 17:00 Insulin R (Human) PHA 04/07/25 In Process (Insulin R) 17:00 Dextrose 50% Syringe PHA 04/07/25 In Process 14:45 Acetaminophen Tablet PHA 04/07/25 In Process (Tylenol Tablet) 14:45 Date of Service: Apr 07, 2025 Billing Provider: ZENAIDA MOON MD Common Visit Codes: [id number] INP/OBS CARE(HIGH) ZENAIDA MOON MD Apr 07, 2025 15:15
--- NOTE | 2025-04-07 15:40 | DVH ---
INDICATION: RUBINA, Renal US only TECHNIQUE: Multiple real-time sonographic images of the abdomen were obtained. COMPARISON: None FINDINGS: The liver is homogenous in echogenicity. The liver measures INDICATION: RUBINA, Renal US only TECHNIQUE: Multiple real-time sonographic images of the kidneys and bladder were obtained. COMPARISON: None FINDINGS: The right kidney measures 9.3 cm in length, which is normal in size. There is normal echogenicity of the right kidney. No hydronephrosis. The left kidney measures 9.9 cm in length, which is normal in size. There is normal echogenicity of the left kidney. No hydronephrosis. No large intraluminal masses are seen in the bladder. Prior to voiding the bladder volume measures volume 66.7 cc. Bladder wall is 2.7 mm Right ureteral jet visualized. Left ureteral jet not visualized. No postvoid bladder volume received 2.9 x 2.8 x 2.9 cm hyperechoic structure in the liver most likely a hemangioma. IMPRESSION: 1. Normal sonographic appearance of the kidneys. No hydronephrosis. 2. 3 x 2.8 x 3 cm hyperechoic structure in the liver likely hemangioma. 3. 9.3 cm right kidney 9.9 cm long left kidney. 4. Prevoid bladder volume 66.7 mL. Right ureteral jet visualized left ureteral jet not visualized. 5. Bladder wall measures 2.7 mm.
[2025-04-07] MEDS: SODIUM CHLORIDE 0.9% 1,000 ML IV SCH (15:51)
[2025-04-07] MEDS: LISINOPRIL 5 MG TAB PO ONE (16:26)
[2025-04-07] MEDS: ACETAMINOPHEN 325 MG TAB PO PRN (16:27)
[2025-04-07] MEDS: ACCU-CHEK COMFORT CURVE STRIP VI SCH (18:00)
[2025-04-07] MEDS: InsuLIN REG 1unit/0.01ml Soln (100units/ml) SC SCH (18:02)
[2025-04-07] MEDS: INSULIN LANTUS (GLARGINE) 1 /0.01ml (100units/ml) SC SCH (21:37)
[2025-04-07] MEDS: levETIRAcetam 500 MG TAB PO SCH (21:40)
[2025-04-08 01:00] VITALS: BP 133/81; PULSE 72; RESP 18; TEMP 97.8; O2SAT 100
[2025-04-08 05:00] VITALS: BP 153/101; PULSE 74; RESP 18; TEMP 97.7; O2SAT 100
[2025-04-08 06:00] LABS: Hematocrit 28.4 % (36.0-46.0); Hemoglobin 9.2 g/dL (12.2-16.2); Nucleated Red Blood Cells % 0.1 %
[2025-04-08 06:03] LABS: Mean Corpuscular Hemoglobin 23.7 pg (28.0-32.0); Mean Corpuscular Volume 73.0 fL (80.0-100.0)
[2025-04-08 06:09] LABS: Anion Gap 7 (5-15); Carbon Dioxide 27 mmol/L (20-31); Chloride 107 mmol/L (98-107); Potassium 4.3 mmol/L (3.5-5.1); Sodium 141 mmol/L (136-145)
[2025-04-08 06:14] LABS: Calcium 7.9 mg/dL (8.7-10.4)
[2025-04-08 06:15] LABS: BUN/Creatinine Ratio 12.5 (10.0-20.0); Blood Urea Nitrogen 20 mg/dL (9-23); Glucose 100 mg/dL (74-106)
[2025-04-08 08:00] VITALS: PULSE 88
[2025-04-08] MEDS: LISINOPRIL 5 MG TAB PO SCH (08:56)
[2025-04-08 09:00] VITALS: BP 149/100; PULSE 85; RESP 18; TEMP 98.6; O2SAT 100
[2025-04-08] MEDS ORDERED: LISI-275 PO (12:08)
[2025-04-08] MEDS ORDERED: LEVE750T15 PO (12:08)
[2025-04-08] MEDS ORDERED: CEPH250C PO (12:10)
--- NOTE | 2025-04-08 12:10 | DVHDS2 ---
Discharge Summary Date of Admission Apr 06, 2025 at 04:37 Date of Discharge: Apr 08, 2025 Admitting Diagnosis Breakthrough seizure likely due to hypoglycemia Generalized tonic-clonic seizure Type 1 diabetes mellitus with hypoglycemia RUBINA due to VMN Urinary tract infection Labs/Diagnostic Data: Laboratory Results Test 04/08/25 11:19 04/08/25 04:54 04/07/25 14:26 04/06/25 22:45 POC Glucose 305 mg/dl (70-106) White Blood Count 4.8 10^3/uL (4.4-10.8) Red Blood Count 3.90 10^6/uL (4.0-5.20) Hemoglobin 9.2 g/dL (12.2-16.2) Hematocrit 28.4 % (36.0-46.0) Mean Corpuscular Volume 73.0 fL (80.0-100.0) Mean Corpuscular Hemoglobin 23.7 pg (28.0-32.0) Mean Corpuscular Hemoglobin Concent 32.5 g/dL (32.0-36.0) Red Cell Distribution Width 16.5 % (11.8-14.3) Platelet Count 388 10^3/uL (140-450) Mean Platelet Volume 8.1 fL (6.9-10.8) Neutrophils (%) (Auto) 51.5 % (37.0-80.0) Lymphocytes (%) (Auto) 31.8 % (10.0-50.0) Monocytes (%) (Auto) 7.5 % (0.0-12.0) Eosinophils (%) (Auto) 7.8 % (0.0-7.0) Basophils (%) (Auto) 1.4 % (0.0-2.0) Neutrophils # (Auto) 2.5 10 ^3/uL (1.6-8.6) Lymphocytes # (Auto) 1.5 10 ^3/uL (0.4-5.4) Monocytes # (Auto) 0.4 10 ^3/uL (0-1.3) Eosinophils # (Auto) 0.4 10 ^3/uL (0-0.8) Basophils # (Auto) 0.1 10 ^3/uL (0-0.2) Nucleated Red Blood Cells 0.1 % Sodium Level 141 mmol/L (136-145) Potassium Level 4.3 mmol/L (3.5-5.1) Chloride Level 107 mmol/L (98-107) Carbon Dioxide Level 27 mmol/L (20-31) Anion Gap 7 (5-15) Blood Urea Nitrogen 20 mg/dL (9-23) Creatinine 1.60 mg/dL (0.550-1.02) Glomerular Filtration Rate Calc 45 mL/min (>90) BUN/Creatinine Ratio 12.5 (10.0-20.0) Serum Glucose 100 mg/dL (74-106) Calcium Level 7.9 mg/dL (8.7-10.4) Total Bilirubin 0.2 mg/dL (0.2-1.0) Aspartate Amino Transferase (AST) 22 U/L (13-40) Alanine Aminotransferase (ALT) 20 U/L (7-40) Alkaline Phosphatase 85 U/L (46-116) Total Protein 6.3 g/dL (5.7-8.2) Albumin 3.2 g/dL (3.2-4.8) SARS-CoV-2 Antigen (Rapid) Negative (NEGATIVE) Test 04/06/25 15:11 04/06/25 04:59 04/05/25 23:21 04/05/25 23:19 Creatine Kinase 173 U/L (34-145) Hemoglobin A1c 9.1 % A1C (<5.7) Thyroxine (T4) 6.1 ug/dL (4.5-12.0) Beta HCG, Quantitative 0.9 mIU/mL (1.5-4.2) Lactic Acid Level 1.6 mmol/L (0.4-2.0) Magnesium Level 2.1 mg/dL (1.6-2.6) Troponin I High Sensitivity < 3 ng/L (</=34) Urine Color Colorless (Yellow) Urine Clarity Turbid (Clear) Urine pH 6.5 (5.0-9.0) Urine Specific [place] 1.012 (1.001-1.035) Urine Protein 2+ (Negative) Urine Ketones Negative (Negative) Urine Blood 3+ /uL (Negative) Urine Nitrite Negative (Negative) Urine Bilirubin Negative (Negative) Urine Urobilinogen Normal mg/dL (Negative) Urine Leukocyte Esterase 1+ /uL (Negative) Urine RBC 4035 /hpf (0 - 4) Urine Microscopic WBC 17 /HPF (0-5) Urine Squamous Epithelial Cells Few /hpf (<5) Urine Bacteria None seen /hpf (None Seen) Urine Creatinine 46.38 mg/dL (30.0-125.0) Urine Protein/Creatinine Ratio 7.61 Urine Sodium 82 mmol/L (40-220) Urine Glucose 2+ mg/dL (Normal) Urine Total Protein 352.8 mg/dL (1-14) Other Laboratory Tests 04/08/25 04:54 Brief Hx & Hospital Course: This is a 29 years old female with past medical history diabetes type 2, seizure come to emergency department because of seizure activity on the night prior to admission. According to the patient she took NovoLog right before dinner and later found her blood glucose of 57. Shortly after that she experience witnessed seizure while sitting on the couch. Is no head trauma. The patient said she checked her blood glucose daily and usually is around 150-180. Patient also take Keppra 500 mg twice per day but had missed her morning dose. Her last seizure is one years prior to this admission. Upon EMS arrival, her blood glucose was 69 and she was given D10 W which improved her blood glucose. The patient was found to have urinary tract infection, acute kidney injury superimposed on chronic kidney disease stage 3 and also hypertension. The patient said she never had high blood pressure before but her blood pressure in the hospital consistently with hypertension so we started her on lisinopril 5 mg p.o. daily. Her blood pressure improved somehow. Patient has kidney failure had been evaluated thigh spotlight operator. He recommend kidney biopsy when urinary tract infection resolved. Her urine culture showed less than 05838 units so bacteria. Today she is doing well. Blood glucose control. We restarted her back on her home dose of Lantus which is 30 units subQ q.h.s.. Continuing sliding scale at home. Activity as tolerated. Diet carb controlled diet. Continuing antibiotic Keflex for seven more days. Follow up with primary care physician 1-2 weeks. Follow up with spotlight operator for possible kidney biopsy per schedule. Physical exam HEENT: Normocephalic atraumatic pupils equal react to light and accommodation. Extraocular muscles intact, conjunctiva pink, oropharynx moist, no thrush, no exudate. Lymphatic: No lymphadenopathy Cardiovascular exam: S1, S2 was heard. No murmurs, rubs, gallops Lung: Clear on auscultation bilaterally, no wheeze, rale, rhonchi. GI: Abdominal soft, nondistended, nontenderness, positive bowel sounds. Extremity: No crepitus, cyanosis, edema. Pedal pulses present bilateral. Full range of motion. Skin: Normal turgor, no rash. Psych: Alert, oriented x3. Neurology: No focal deficits, cranial nerve II to XII grossly intact. This medical document was created using an electronic medical record system with [employer] computerized dictation system. Although this document has been carefully reviewed, there may still be some phonetic and typographical errors. These areas are purely typographical due to imperfections of the software programs, and do not reflect any compromise in the patient's medical care. Condition at Discharge: Stable Final Diagnosis/Problems List Breakthrough seizure likely due to hypoglycemia Generalized tonic-clonic seizure Type 1 diabetes mellitus with hypoglycemia RUBINA due to VMN Urinary tract infection Discharge Disposition: Home Discharge Instruct/Medications Diet: Consistent carbohydrate Activity: No Restrictions, As Tolerated Follow Up/Referral: pcp 1-2 weeks Medications: See med list Scheduled Cephalexin (Keflex Capsule), 2 CAP PO BID Insulin Glargine (Lantus), 30 UNIT SC HS, (Reported) Levetiracetam (Keppra), 750 MG PO BID Lisinopril (Lisinopril), 5 MG PO DAILY Scheduled PRN Albuterol Sulfate (Albuterol Sulfate), 2 MG PO Q6HP PRN for SHORTNESS OF BREATH, (Reported) Miscellaneous Medications Insulin Aspart (Novolog), 100 UNIT IJ, (Reported) Discontinued Medications Levetiracetam (Keppra), 500 MG PO BID, (Reported) Discharge Statement: "Patient was advised to return to the ER or call 911 if any headaches, dizziness, shortness of breath, chest pain, abdominal pain, bleeding, fevers, or worsening of medical condition. Patient was counseled about treatment plan, medications, possible side effects, patientverbalized understanding. All questions were answered to the best of my ability. This discharge took greater then 30 minutes in planning, reviewing documentation, counseling the patient, and discussing with other team members." ASSESSMENT ASSESSMENT Assessment Seizure, DM uncontrol UTI Date of Service: Apr 08, 2025 Billing Provider: ZENAIDA MOON MD Common Visit Codes: [id number]/[id number] DISCH DAY >30min ZENAIDA MOON MD Apr 08, 2025 12:10
[2025-04-08 13:00] VITALS: BP 158/96; PULSE 90; RESP 20; TEMP 98.6; O2SAT 100
== END 2025-04-08 14:00 | disposition home or self-care (01) | DRG 420 ==
LOC: EDBD 21:40 → ER 21:40 → EDUNIT# 21:40 → OVERFLOW 04-06 04:37 → TELE-WESTW 04-06 14:00
PROVIDERS: ADMIT Internal Medicine; ATTEND Internal Medicine
DX: E10.649 Type 1 diabetes mellitus with hypoglycemia without coma (principal); N17.0 Acute kidney failure with tubular necrosis; N39.0 Urinary tract infection, site not specified; J45.909 Unspecified asthma, uncomplicated; I12.9 Hypertensive chronic kidney disease with stage 1 through stage 4 chronic kidney disease, or unspecified chronic kidney disease; E10.22 Type 1 diabetes mellitus with diabetic chronic kidney disease; G40.409 Other generalized epilepsy and epileptic syndromes, not intractable, without status epilepticus; N18.30 Chronic kidney disease, stage 3 unspecified; Z20.822 Contact with and (suspected) exposure to COVID-19; R31.29 Other microscopic hematuria; Z79.4 Long term (current) use of insulin; Z82.49 Family history of ischemic heart disease and other diseases of the circulatory system; Z82.5 Family history of asthma and other chronic lower respiratory diseases; Z79.899 Other long term (current) drug therapy; Z83.3 Family history of diabetes mellitus
CPT/HCPCS: 36415; 71045; 76775; 80048; 80053; 81001; 82542; 82550; 82570; 82962; 83036; 83605; 83735; 84156; 84300; 84436; 84484; 84702; 85025; 86160; 87426; 96365; G0378; J1815; J2405